=== PATIENT | male | born 1990 | race Caucasian/White ===

== ENCOUNTER 2021-07-24 00:02 | Emergency (ER) | payer BC, SELFPAY ==
--- NOTE | 2021-07-24 00:03 | ECG_ITS ---
APPROVED REPORT Exam: Resting ECG HR:115 bpm ECG Measurements Heart Rate 115 AXES CO 146 P 55 QRSd 82 QRS 50 QT 294 T 57 QTc 406 Conclusion Sinus tachycardia Otherwise normal ECG Electronically signed by : Tiburcio Rachel MD 07/24/2021 20:22:50
[2021-07-24 00:04] VITALS: BP 132/86; PULSE 114; RESP 16; TEMP 37.9; O2SAT 98; BMI 32.5
--- NOTE | 2021-07-24 00:19 | XR_ITS ---
PROCEDURE INFORMATION: Exam: XR Chest Exam date and time: 07/24/2021 12:19 AM Age: 30 years old Clinical indication: Cough and fever and shortness of breath; Patient HX: Cough, SOA, fever, covid +; Additional info: Short of breath TECHNIQUE: Imaging protocol: XR of the chest. Views: 2 views. COMPARISON: No relevant prior studies available. FINDINGS: Lungs: Unremarkable. No consolidation. Pleural spaces: Unremarkable. No pleural effusion. No pneumothorax. Heart/Mediastinum: Unremarkable. No cardiomegaly. Bones/joints: Unremarkable. IMPRESSION: No acute findings.
[2021-07-24 00:31] LABS: Eosinophils % 0.1 % (0.1-12.0); Hematocrit 46.1 % (42.0-52.0); Hemoglobin 16.6 g/dL (14.1-18.0); Lymphocytes # 0.7 K/mm3 (0.7-4.5); Lymphocytes % 24.9 % (10-50); Mean Corpuscular Hemoglobin 29.7 pg (27.0-31.2); Mean Corpuscular Volume 82.5 fl (80-94); Mean Platelet Volume 9.6 fl (7.4-10.4); Monocytes # 0.2 K/mm3 (0.1-1.0); Monocytes % 7.3 % (1.7-9.3); Neutrophils # 1.8 K/mm3 (1.8-7.8); Neutrophils % 66.8 % (37.0-80.0); Platelet Count 142 K/mm3 (142-424); Red Blood Count 5.59 M/mm3 (4.60-6.20); Red Cell Distribution Width 12.5 % (11.5-17.5); White Blood Count 2.8 K/mm3 (4.8-10.8)
[2021-07-24 00:36] LABS: Alanine Aminotransferase 82 U/L (12-78); Albumin Level 4.1 g/dl (3.5-5.0); Albumin/Globulin Ratio 1.4 (1.1-1.8); Alkaline Phosphatase 109 U/L (38-126); Anion Gap 10.2 mEq/L (5-15); Aspartate Amino Transferase 60 U/L (17-59); Bilirubin,Direct 0.1 mg/dl (0.0-0.4); Bilirubin,Total 0.6 mg/dl (0.2-1.3); Blood Urea Nitrogen 16 mg/dl (9-20); Calcium 8.7 mg/dl (8.4-10.2); Carbon Dioxide 28 mmol/L (22.0-30.0); Chloride 100 mmol/L (98-107); Creatinine Clearance Estimated 165 mL/min (50-200); Estimated Glomerular Filt Rate 87 ml/min (>60); GFR (African American) 105 ML/MIN (>60); Glucose 123 mg/dl (74-100); Potassium 4.2 mmoL/L (3.5-5.1); Sodium 134 mmol/L (136-145); Total Protein,Serum 7.1 g/dl (6.3-8.2)
--- NOTE | 2021-07-24 00:36 | CT_ITS ---
PROCEDURE INFORMATION: Exam: CTA Chest With Contrast Exam date and time: 07/24/2021 12:36 AM Age: 30 years old Clinical indication: Cough and fever and shortness of breath; Patient HX: SOA, cough, covid positive, fever TECHNIQUE: Imaging protocol: Computed tomographic angiography of the chest with contrast. 3D rendering (Not supervised by radiologist): MIP and/or 3D reconstructed images were created by the technologist. Radiation optimization: All CT scans at this facility use at least one of these dose optimization techniques: automated exposure control; mA and/or kV adjustment per patient size (includes targeted exams where dose is matched to clinical indication); or iterative reconstruction. Contrast material: ISOVUE 370; Contrast volume: 70 ml; Contrast route: INTRAVENOUS (IV); COMPARISON: CR XR CHEST 2V 07/24/2021 12:22 AM FINDINGS: Pulmonary arteries: No evidence of pulmonary embolus to the proximal segmental level in most cases. Aorta: Unremarkable. No aortic aneurysm. Lungs: Multifocal airspace opacities are seen. They do have a somewhat nodular appearance. Favored pneumonia, but septic emboli and even malignancy should be considered clinically. Pleural spaces: Unremarkable. No pneumothorax. No pleural effusion. Heart: Unremarkable. No cardiomegaly. No pericardial effusion. Lymph nodes: Mildly prominent mediastinal lymph nodes. Bones/joints: Unremarkable Soft tissues: Unremarkable. IMPRESSION: 1. No evidence of pulmonary embolus. 2. Multifocal airspace opacities. Favor pneumonia.
[2021-07-24 00:39] VITALS: BP 130/84; PULSE 109; O2SAT 95
[2021-07-24 00:48] LABS: Troponin I < 0.01 ng/ml (0.00-0.034)
[2021-07-24 01:00] VITALS: BP 123/74; PULSE 105; O2SAT 96
--- NOTE | 2021-07-24 01:10 | HMH.EDSOB ---
ED Disposition Clinical Impression: COVID-19 Disposition: Home, Self-Care Condition on Discharge: Good Instructions: DI for COVID-19 (Suspected or Confirmed ) Additional Instructions: use meds and see pcp for follow up Prescriptions: dexAMETHasone [Decadron] 6 mg PO DAILY #6 tab [facility]: [id number] [place] [facility] levoFLOXacin [Levaquin 500mg tab] 500 mg PO DAILY #7 tab Transmission Status: [id number] [place] [facility] Referrals: Laureen Rowan [Primary Care Provider] - - Critical Care Critical Care Time: No Attestation: On 07/24/21, the high probability of a clinically significant, sudden or life threatening deterioration of the following system(s) required my full and direct attention, intervention and personal management. The time I documented below is in addition to time spent performing reported procedures but includes the following listed in this critical care notation. Medical Decision Making - Medical Records Medical records reviewed: Yes: I reviewed the patient's medical records. - Madi Inquiry Pt receiving controlled substance: No Vital Signs: 07/24/21 00:04 Temperature 100.3 F H Temperature Source Oral Pulse Rate [Left] 114 H Respiratory Rate 16 Blood Pressure [Right Arm] 132/86 Blood Pressure Mean [Right Arm] 101 02 Sat by Pulse Oximetry 98 Oxygen Delivery Method Room Air - Lab Data Lab results reviewed: Yes: I reviewed the patient's lab results. Lab Results 07/24/21 00:21: WBC 2.8 L, RBC 5.59, Hgb 16.6, Hct 46.1, MCV 82.5, MCH 29.7, MCHC 36.0 H, RDW 12.5, Plt Count 142, MPV 9.6, Neut % (Auto) 66.8, Lymph % (Auto) 24.9, Snyder % (Auto) 7.3, Eos % (Auto) 0.1, Baso % (Auto) 1.0, Neut # (Auto) 1.8, Lymph # (Auto) 0.7, Snyder # (Auto) 0.2, Eos # (Auto) 0.0, Baso # (Auto) 0.0 07/24/21 00:21: Sodium 134 L, Potassium 4.2, Chloride 100, Carbon Dioxide 28, Anion Gap 10.2, BUN 16, Creatinine 1.00, Estimated Creat Clear 165, Estimated GFR 87, Est GFR ( Amer) 105, Glucose 123 H, Calcium 8.7, Total Bilirubin 0.6, Direct Bilirubin 0.1, AST 60 H, ALT 82 H, Alkaline Phosphatase 109, Troponin I < 0.01, Total Protein 7.1, Albumin 4.1, Globulin 3.0, Albumin/Globulin Ratio 1.4 Result diagrams: 07/24/21 00:21 07/24/21 00:21 Orders (Tests/Meds): ED MEDICATIONS Generic Name Dose Route Start Last Admin Trade Name Freq PRN Reason Stop Dose Admin Sodium Chloride 1,000 mls @ 999 mls/hr 07/24/21 00:30 12 00:24 Sod Chlor 0.9% 1000ml Bag IV 07/24/21 01:30 999 mls/hr .Q1H1M KAROLINA Administration Discontinued Medications Generic Name Dose Route Start Last Admin Trade Name Freq PRN Reason Stop Dose Admin Dexamethasone Sodium Phosphate 10 mg 07/24/21 00:21 12 00:24 Dexamethasone 4mg/Ml 1ml Vial IV 07/24/21 00:22 10 mg ONCE ONE Administration Ibuprofen 800 mg 07/24/21 00:21 12 00:24 Ibuprofen 400 Mg Tablet PO 07/24/21 00:22 800 mg ONCE ONE Administration Iopamidol 70 ml 07/24/21 00:51 07/24/21 00:51 Iopamidol-370 (76%);100ml Bottle IV 07/24/21 00:52 70 ml ONCE ONE Administration Sodium Chloride 50 ml 07/24/21 00:51 07/24/21 00:51 0.9 % Sodium Chloride 50 Ml Vial IV 07/24/21 00:52 50 ml ONCE ONE Administration Sodium Chloride 10 ml 07/24/21 00:51 07/24/21 00:51 Sodium Chloride 0.9% 10ml Syr (Rad Only) IV 07/24/21 00:52 10 ml ONCE ONE Administration ORDERS Category Date Time Status Lactic Acid Stat Lab 07/24/21 00:19 Ordered Troponin I Q3H Lab 07/24/21 03:30 Ordered Troponin I Q3H Lab 07/24/21 06:30 Ordered - Radiology Data #1 Image(s): Chest Image Reviewed: Yes I have reviewed radiologist's interpretation Preliminary Findings: Normal/NAD - CT Data CT Scan: Chest Time Received: 01:[address] Reviewed: Yes: I have viewed the radiologist's interpretation Preliminary Findings: Abnormal (see report ) - ECG Data Tracing #1 Arrhythmias
[2021-07-24 02:00] VITALS: BP 119/72; PULSE 93; RESP 18; TEMP 37.2; O2SAT 95
== END 2021-07-24 02:04 | disposition home or self-care (01) ==
PROVIDERS: Emergency Provider Emergency Medicine; PCP Pediatrics
DX: U07.1 COVID-19 (principal)
CPT/HCPCS: 71046; 71275; 80053; 82248; 84484; 85025; 93005; 96365; 96375; 99283; Q9967

== ENCOUNTER 2022-07-01 01:37 | Emergency (ER) | payer BC, SELFPAY ==
[2022-07-01 01:39] VITALS: BP 125/98; PULSE 88; RESP 16; TEMP 37.2; O2SAT 97; BMI 31.8
[2022-07-01 01:48] LABS: Influenza A, PCR Not Detected (NotDetected); Influenza B, PCR Not Detected (NotDetected)
--- NOTE | 2022-07-01 01:48 | XR_ITS ---
PROCEDURE INFORMATION: Exam: XR Chest Exam date and time: 07/01/2022 1:49 AM Age: 31 years old Clinical indication: Cough and fever TECHNIQUE: Imaging protocol: Radiologic exam of the chest. Views: 2 views. COMPARISON: CR XR CHEST 2V 07/24/2021 12:22 AM FINDINGS: Lungs: No focal consolidation. Pleural spaces: No pleural effusion. No pneumothorax. Heart/Mediastinum: Unremarkable cardiomediastinal silhouette. Bones/joints: No acute osseous findings. IMPRESSION: No focal consolidation.
--- NOTE | 2022-07-01 02:10 | HMH.EDURI ---
Discharge Plan Disposition Chief Complaint: Upper Respiratory Infection Prescriptions Prescriptions: No Action amoxicillin 500 mg capsule 500 mg PO BID Referrals Follow up/Referrals: Provider,Referral, MD [Primary Care Provider] - See instructions Clinical Impressions Clinical Impression: COVID-19 Stand Alone Forms Stand Alone Forms: Work/School Release Instructions Patient Instructions: DI for COVID-19 (Suspected or Confirmed ) Discharge ED Provider: Deny Stanton URI/Sore Throat HPI General Chief Complaint: Upper Respiratory Infection Stated Complaint: Fever, Sore thoat, body aches, fatigue, chills Time Seen by Provider: 07/01/22 02:10 Mode of Arrival: Ambulatory Source of Information: Patient Limitations: No Limitations Description of Symptoms (Recalled from ER Triage Doc. by RN): pt c/o fever,cough,body aches, fatigue that started yesterday. tonight at home took a at home covid test and was positive. History of Present Illness HPI Narrative: uri sx and cough with fever and presents for ru AL Complaint: fever and cough Onset (ago): day(s) Duration: intermittent Severity: moderate Able to tolerate fluids by mouth: Yes Treatments prior to arrival: none Related Data Home Medications Medication Instructions Recorded Confirmed amoxicillin 500 mg capsule 500 mg PO BID Infection 07/01/22 07/01/22 Allergies Allergy/AdvReac Type Severity Reaction Status Date / Time No Known Allergies Allergy Verified 07/24/21 00:18 [facility] Social History Smoking Status: Never smoker alcohol intake: never current occupational status: employed Travel in the last 8 weeks: None ROS Obtained: Yes All systems reviewed & no additional complaints except as documented Physical Exam General General appearance: alert Head Head exam: normocephalic Eye Eye exam: Present PERRL and EOMI ENT ENT exam: Present normal oropharynx, mucous membranes moist and TM's normal bilaterally Neck Neck exam: Present full ROM; Absent trachea midline Respiratory Respiratory exam: Present normal lung sounds bilaterally; Absent respiratory distress Cardiovascular Cardiovascular exam: Present regular rate; Absent systolic murmur Abdominal Exam Abdominal exam: Present soft Extremities Exam Extremities exam: Present full ROM Neurological Exam Neurological exam: Present alert, oriented X3 and CN II-XII intact; Absent motor sensory deficit Psychiatric Psychiatric exam: Present normal affect Skin Skin exam: Absent rash Medical Decision Making Medical Records Medical records reviewed: Yes I reviewed the patient's medical records. Madi Inquiry Pt receiving controlled substance: No Vital Signs: 07/01/22 01:39 Temperature 99.0 F Temperature Source Oral Pulse Rate [Right] 88 Respiratory Rate 16 Blood Pressure [Right Arm] 125/98 H Blood Pressure Mean [Right Arm] 107 02 Sat by Pulse Oximetry 97 Lab Data Lab results reviewed: Yes I reviewed the patient's lab results. Lab Results 07/01/22 01:42: SARS-CoV-2 (PCR) Detected A, Influenza A Untype (PCR) Not detected, Influenza Type B (PCR) Not detected Orders (Tests/Meds): ORDERS Category Date Time Status Chest XR 2 view (NOT portable) [XR chest 2V] Stat Exams 07/01/22 01:48 Completed Rapid PCR Covid and Flu A/B Stat Lab 07/01/22 01:42 Completed Radiology Data #1: Image(s): Chest Image Reviewed: Yes I have reviewed radiologist's interpretation Preliminary Findings: Normal/NAD Medical Decision Narrative: has stable exam but has covid-19 Critical Care Time Critical Care Time Critical Care Time: No Attestation: On 07/01/22, the high probability of a clinically significant, sudden or life threatening deterioration of the following system(s) required my full and direct attention, intervention and personal management. The time I documented below is in addition to time spent performing reported procedures but inclu
[2022-07-01 02:15] LABS: Coronavirus 19, PCR Detected (NotDetected)
[2022-07-01 02:49] VITALS: BP 131/74; PULSE 81; RESP 16; TEMP 37.2; O2SAT 99
== END 2022-07-01 02:53 | disposition home or self-care (01) ==
PROVIDERS: Emergency Provider Emergency Medicine
DX: U07.1 COVID-19 (principal)
CPT/HCPCS: 71046; 99283; C9803; U0003; U0005